=== PATIENT | male | born 1980 | race African-American/Black ===

== ENCOUNTER 2021-04-29 16:07 | Emergency (ER) | payer MEDICAID ==
[~2021-04-29] VITALS: Ht 188 cm; Wt 70.3 kg
--- NOTE | 2021-04-29 16:44 | NUR ---
THE PATIENT BIBS FOR C/O FEELING DEPRESSED, SUICIDAL W PLAN TO JUMP OFF A LO. REQUESTING VOLUNTARY PSYCH ADMIT TO [facility]. DENIES HI. DENIES PAIN. WILL CONTINUE TO MONITOR THE PATIENT.
[2021-04-29 16:55] LABS: BILIRUBIN,URINE NEGATIVE (NEGATIVE); COLOR,URINE YELLOW (YELLOW); LEUKOCYTE ESTERASE ,URINE NEGATIVE (NEGATIVE); NITRITE, URINE NEGATIVE (NEGATIVE); PROTEIN,URINE NEGATIVE (NEGATIVE); UGLUCOSE NEGATIVE (NEGATIVE)
[2021-04-29 17:02] LABS: BACTERIA,URINE None seen /HPF (None Seen); SQUAMOUS EPITHELIAL CELL,UR 0-2 /HPF (None Seen); WBC,URINE 0-2 /HPF (0-3)
[2021-04-29 17:38] LABS: BASOPHILS % (AUTO) 0.9 % (0.0-2.0); EOSINOPHILS % (AUTO) 1.8 % (0.0-6.0); HEMATOCRIT 44 % (39-51); LYMPHOCYTES # (AUTO) 1.7 K/uL (0.8-4.8); LYMPHOCYTES % (AUTO) 38.9 % (20.0-44.0); MEAN CORPUSCULAR HGB CONC 34 g/dl (31.0-36.0); MEAN CORPUSCULAR VOLUME 96 fL (80-96); MONOCYTES # (AUTO) 0.5 K/uL (0.1-1.30); MONOCYTES % (AUTO) 10.4 % (2.0-12.0); NEUTROPHILS # (AUTO) 2.1 K/uL (1.8-8.9); PLATELET COUNT (AUTO) 170 K/uL (150-450); RED BLOOD CELL COUNT(AUTO) 4.59 MIL/uL (4.5-6.0); WHITE BLOOD COUNT (AUTO) 4.4 K/uL (4.3-11.0)
[2021-04-29 17:45] LABS: CALCIUM, SERUM 8.4 mg/dL (8.5-10.1); CARBON DIOXIDE 27 mmol/L (21-32); CHLORIDE 103 mmol/L (98-107); CREATININE 1.2 mg/dL (0.6-1.3); GLUCOSE 82 mg/dL (74-106); POTASSIUM 3.6 mmol/L (3.5-5.1); SODIUM SERUM 137 mmol/L (136-145); UREA NITROGEN, BLOOD 14 mg/dL (7-18)
[2021-04-29 17:58] LABS: ALANINE AMINOTRANSFERASE 21 U/L (12-78); ALCOHOL, BLOOD < 3 mg/dL (0-0); ALKALINE PHOSPHATASE 43 U/L (46-116); ASPARTATE AMINOTRANSFERASE 21 U/L (15-37); BILIRUBIN,DIRECT 0.2 mg/dL (0.0-0.2); BILIRUBIN,TOTAL 0.8 mg/dL (0.2-1.0); TOTAL PROTEIN, SERUM 7.2 g/dL (6.4-8.2)
[2021-04-29 17:59] LABS: ACETAMINOPHEN < 0 ug/ml (10-30)
--- NOTE | 2021-04-30 02:27 | NUR ---
CALLED [facility] TO SEE IF THEY WILL ACCEPT THE PT WITH SERVICE ANIMAL. THEY DO NOT ACCEPT SERVICE ANIMALS.
--- NOTE | 2021-04-30 02:27 | NUR ---
PT HAS A SERVICE DOG WHICH IS NOT ALLOWED IN [facility] . TRIED OTHER MULTIPLE MENTAL HEALTH FACILITIES UNSUCCESSFUL. WILL CONTINUE TO LOOK FOR OTHER FACILITIES
[2021-04-30 05:00] VITALS: BP 144/74
--- NOTE | 2021-04-30 05:36 | NUR ---
CALLED [facility] FOR HELP AND REFERRAL AND SPOKE TO KRYSTIN. WAS REFERRED TO [facility].
--- NOTE | 2021-04-30 05:42 | NUR ---
CALLED [facility] AND LEFT A MESSAGE FOR CAROL CAMARA. AWAITING FOR HIS CALL BACK
--- NOTE | 2021-04-30 08:51 | NUR ---
CALLED [facility] AND THERE WAS NO ANSWER. LEFT VOICEMAIL TO ALEJANDRA WITH PT STATUS.
--- NOTE | 2021-04-30 12:10 | NUR ---
"SS Consult: SS Consult requested for SI, drug abuse & homelessness. The pt. is a 40- year old Black male who presents to ED with C/O intermittent suicidal ideations to jump off a kaylie per EMR. ODILON met with pt. bedside. The pt. appears well-groomed is A&O X4 and makes good contact. Pt.s mood is dysphoric mood, pt. is manipulative & guarded. Pt. denies current visual & auditory hallucinations and refused to disclose further details. Pt. denies current SI/HI. Pt. stated, I do not want to say too much and put myself in a position where my service dog will be take away from me. ODILON offered pt. voluntary admission to a psych facility for treatment and pt. states, I will only go to a place where I can take my dog. ODILON explored pt.s mental health Hx. Pt. refused to disclose. SW explored pt.s living situation. Pt. admits he has been experiencing homelessness for the past few months. Pt. stated he moved here from [place] for a job opportunity and has had a difficult time finding a place to stay. ODILON explored pt.s drug & ETOH use. Patient stated he Cannabinoids often. SW provided addiction resources and he accepted them. Pt. states he is ambulatory. SW explored pt.s support system. Pt. states he has no support system. Pt. states he receives Food stamps & General Relief and SSDI. Pt. stated he is looking for a long-term or mental health hospital where he can also bring his service dog. Pt. states he has proper paperwork for his service dog. Plan: ODILON referred pt. to [facility] for inpatient psychiatric treatment. Pt. was denied. Pt. stated that he found a mental health Facility: [facility] with psychiatrist, Hui Thayer MD Address:[address] [place] [id number]: that can provide treatment, case management and he can bring service dog with him. Patient stated he will go there. ODILON provided pt. with alternative long-term placement where they accept service dogs: [facility] [[address] [place] [address]; ] Pt. is agreeable. ODILON provided pt. with TAP card and pt. accepted it. Pt. signed homeless waiver and it was placed in the chart. SW provided pt. with homeless, and mental health resources and he accepted them : Year-round shelters: Monette Montchanin [address] [place] [address] ; [facility] [address] [place] [address]; [facility] [id number] [facility] [address] Winter Shelters: SPA 2 | [facility] ChurcProvider: Jacquie of [facility] Address: Confidential (call for location ) Population Served: Coed # of Beds: 57 SPA 4 | [facility] Provider: Home at Last Address: [address] [place], [place] [id number] # of Beds: 49 Population Served: Coed SPA 6 | [facility] Provider: Home at Last Address: [address] [place] [address] # of Beds: 49 Population Served: Coed [facility] Provider: Alonso Humphrey [facility] Address: [address] [facility] [address] # of Beds: 20 Population Served: Women [facility] Facility Provider: Home at Last Address: [address] [facility] [address] # of Beds: 30 Population Served: Women SPA 8 | [facility] Library Provider: Yesenia Address: [address] [facility] [address] # of Beds: 65 Population Served: Coed Hygiene: [facility]: [address] [place] ; [facility] [place] [facility] [address] [facility] ; [facility] [address] . Food Resources: [place] [facility] at [facility]- [address] [place]; Meet Each Need with Dignity (MEND) [address] [facility]. [place]; [facility] Food Pantry [address] [facility]; [facility] [address] [facility]. Mental Health resources provided: [facility] [address] [place], [place] [address] ; [facility] [address] [facility] [address], [place] [address] ; [facility] [address] [place], [place] [id number] ; [facility] [place], [place] [id number] Healthcare Clinics: [facility] [address] [place]. [place] ; [facility] [address] [facility] [address] [place] [address]; [facility] [place] [address] [facility] [place] [address] [phone] Counseling--Outpatient [facility] [address] [facility], [place] [address] (Specializes in in-depth psychotherapy for emotional distress: anxiety, depression, interpersonal conflicts, life transitions, childhood abuse) [facility] [address] [place] [address] (Assist with solving problem marital difficulties, separation & divorce, aging parents, & grief, chronic & terminal illness) [facility] [address] [place] [address] (Deal with loss & grief, anxiety, marital difficulties) Homebound/Mental Health Services [address] [place], [place] [address] (Provide in-home mental services to people who are incapable of leaving their homes) [facility] Senior Service/Resource Center [address] [place] [address] [facility] [address]. [place] [address] PSYCHIATRIC OUTPATIENT SERVICES [facility] Partial Hospitalization and Intensive Outpatient Program (Managed Care and [place] Only)[address] [facility] [phone] [facility] Partial Hospitalization and Outpatient R[address] [place], [place] [phone] [facility] [place] [id number] [facility] [place], [place] [phone] [facility] Partial Hospitalization and Outpatient [id number] [facility] [place], [phone] Substance Abuse resources provided included: [facility] Substance Abuse Self-Helpline ([facility]) ; C[facility] [address] [facility]. [place] [address] ; [facility] [address] [facility] [address] ; [facility] Rehabilitation Program [address] [facility] [address] ; [facility] [address] [facility] [address] ; [facility] [address] [facility] [address] ; [facility] [address] [facility] [address] ; [facility] Substance Abuse Helpline(SAS[facility] ; [facility] ; [facility] [place]; [facility] [place]; [facility] Xavier claudia; [facility] [place]; [facility] Darbyallyn; [facility] Christa; [facility]. Isai Rita; Alcoholics Anonymous -SFV; Beck ; Marijuana Anonymous -SFV; Narcotics Anonymous www.[email or web address];"
== END 2021-04-30 08:37 | disposition home or self-care (01) ==
LOC: ER 16:07
DX: R45.851 Suicidal ideations (principal); F12.10 Cannabis abuse, uncomplicated; Z20.822 Contact with and (suspected) exposure to COVID-19; Z59.02 Unsheltered homelessness
CPT/HCPCS: 36415; 80048; 80076; 80143; 80307; 80320; 81001; 85025; 87426; 99285; C9803; G0480